=== PATIENT | female | born 1995 | race Caucasian/White ===

== ENCOUNTER → 2022-05-09 12:39 | Outpatient (BNVA) | payer OTHER, SELFPAY | PROVIDERS: Family Provider Nurse Practitioner; PCP Nurse Practitioner Family; Visit Provider Registered Nurse Neonatal Intensive Care | DX: R53.83 Other fatigue (principal) | CPT/HCPCS: 80053; 82728; 85007; 85027 ==

== ENCOUNTER → 2022-05-11 07:42 | Outpatient (BNVA) | payer OTHER, SELFPAY | PROVIDERS: Family Provider Nurse Practitioner; Visit Provider Family Medicine Adult Medicine | DX: G43.711 Chronic migraine without aura, intractable, with status migrainosus (principal); R53.83 Other fatigue; R53.82 Chronic fatigue, unspecified; R53.81 Other malaise; E66.9 Obesity, unspecified | CPT/HCPCS: 84443 ==